=== PATIENT | female | born 1950 | race Caucasian/White ===

== ENCOUNTER → 2016-07-08 | Outpatient (CLI) | payer MEDICARE ==
[~2016-07-08] MED LIST: LORTAB 500 MG-71 TAB PO
--- NOTE | 2016-07-11 11:43 | RADIOLOGY REPORT PS360 ---
DIG MAMM-SCREEN DB W/CAD CAD Screening COMPARISON: Digital mammograms 06/21/2014 and 07/03/2015 INDICATION: There is no personal or family history of breast cancer TECHNIQUE: Standard CC and MLO images were obtained. R2 CAD reviewed. FINDINGS: The breasts are composed primarily of fat with minimal fibroglandular densities in the subareolar regions of both breasts but more prominent right breast than left but this has been seen previously and this is stable. There is no suspicious lesion and there are no suspicious microcalcifications. There are small nodes in both axilla appear IMPRESSION: Stable exam no suspicious lesion seen recommend yearly follow-up BI-RADS CATEGORY: 1_Negative RECOMMENDED FOLLOWUP: 12M 12 MONTH FOLLOW-UP (A letter has been sent to the patient regarding results of the study.)
== END ==
LOC: RAD 11:00
DX: Z12.31 Encounter for screening mammogram for malignant neoplasm of breast (principal)
CPT/HCPCS: G0202